=== PATIENT | male | born 2000 | race Caucasian/White ===

== ENCOUNTER 2024-03-06 09:40 | Emergency (ER) | payer SELFPAY ==
[2024-03-06 09:43] VITALS: BP 136/71; PULSE 80; RESP 16; TEMP 36.4; O2SAT 96; BMI 29.4
--- NOTE | 2024-03-06 10:20 | ED.EYEPROB ---
HPI - Eye Problem General Chief complaint: Eye Problems Stated complaint: ? L Eye Infection Time Seen by Provider: 03/06/24 09:46 Source: patient Mode of arrival: ambulatory Limitations: no limitations History of Present Illness ED Provider: Iesha Toscano APRN HPI Narrative: 23 yo male with no known medical history here with complaints of left upper eyelid swelling, redness, crusting and drainage. Patient reports symptoms began 1 week ago but then seemed to improve until the last 3 days when they have returned. Patient reports waking with crusting and drainage. He has no visual complaints. Does feel some slight soreness to his left eye. No severe pain, headache, vomiting. Patient reports he is currently in the [employer] and is doing his training away from home. Has not been able to use warm compresses. He does not use contacts or glasses. Related Data Previous Rx's ?Medication ?Instructions ?Recorded doxycycline monohydrate 100 mg 100 mg PO BID #14 caps 03/06/24 capsule erythromycin 5 mg/gram (0.5 %) eye 0.5 inch ophthalmic (eye) TID #3.5 03/06/24 ointment grams Allergies Allergy/AdvReac Type Severity Reaction Status Date / Time No Known Allergies Allergy Verified 03/06/24 09:44 Review of Systems Review of Systems: Yes all other systems are reviewed and are negative Constitutional: Constitutional: Reports no additional constitutional complaints, Denies body ache(s), Denies chills, Denies fever(s), Denies headache(s) and Denies weakness Eyes: Eyes: Reports no additional eye complaints, Denies change in vision, Denies diplopia, Reports eye discharge, Denies irritation, Denies itchy eyes, Denies eye pain, Denies requires corrective lenses, Denies seeing flashes and Denies photophobia ENT: Reports system reviewed and no additional complaints, except as documented, Denies dizziness, Denies headache(s), Denies nasal congestion, Denies nasal discharge and Denies neck pain Cardiovascular: Cardiovascular: Reports no additional cardiovascular complaints, Denies chest pain, Denies leg edema and Denies dyspnea Respiratory: Respiratory: Reports no additional respiratory complaints, Denies cough and Denies dyspnea Gastrointestinal: Gastrointestinal: Reports no additional gastrointestinal complaints, Denies abdominal pain, Denies diarrhea, Denies nausea and Denies vomiting Genitourinary: Genitourinary: Denies urinary incontinence Musculoskeletal: Musculoskeletal: Reports no additional musculoskeletal complaints, Denies back pain, Denies arthralgias, Denies joint swelling, Denies neck pain, Denies numbness and Denies tingling Integumentary/Breasts: Skin/Breast: Reports system reviewed and no additional complaints, except as docu and Denies rash Neurologic: Reports system reviewed and no additional complaints, except as documented, Denies Abnormal speech present, Denies dizziness, Denies headache(s), Denies numbness, Denies tingling and Denies weakness Allergic/Immunologic: Allergic/Immunologic: Denies itchy eyes PMFSH Past Medical History Attestation statement: The following information was validated with the patient. Source: old records reviewed and nursing notes reviewed Social History Social History Advance Directives: No Advance Directives Information Provided: No Physical Exam Vital Signs: Vital Signs: Last Vital Signs Temp 97.5 F 03/06/24 09:43 Pulse 80 03/06/24 09:43 Resp 16 03/06/24 09:43 BP 136/71 03/06/24 09:43 Pulse Ox 96 03/06/24 09:43 O2 Del Method Room Air 03/06/24 09:43 BMI result Body Mass Index 29.4 Const: General: cooperative, healthy appearing, comfortable and no acute distress Orientation/consciousness: patient oriented x3 Limitations: no limitations HEENT: Head: Yes normal to inspection Ears: hearing grossly normal bilaterally General nose exam: Normal external nose present Face and sinus: Yes normal facial exam Mouth: Normal oral and palatal mucosa present Throat: Yes posterior oropharynx normal Eyes: Other: Left upper eyelid swelling/redness with crusting noted over the lash line. NO pointing noted. No drainage noted General: appearance normal, both eyes and all related structures Visual Carmona: normal visual carmona by confrontation Alignment and Position: alignment normal Periorbital: periorbital findings normal Conjunctivae: conjunctivae normal Sclerae: sclerae normal Corneas: corneas normal Pupils: Equal, round and reactive pupils present EOM: EOMs intact bilaterally Direct Ophthalmoscopy: No photophobia Neck: Neck: Yes normal visual inspection Chest: Chest palpation & inspection: normal inspection of the chest Resp: Effort & Inspection: normal respiratory effort Auscultation: clear to auscultation bilaterally Cardio: Rate: regular rate Rhythm: regular rhythm Peripheral pulses: Peripheral pulses 2+ throughout GI: Inspection: Yes normal to inspection Palpation (GI): Soft to palpation and nontender Auscultation: normal bowel sounds Back/Spine/Pelvis: Thoracic/Lumbar Spine: thoracic and lumbar spine normal to inspection Skin: General skin exam: no rashes or lesions noted Neuro: General: patient oriented x3, no focal motor deficits and normal sensation to monofilament Cranial nerves: Yes Equal, round and reactive pupils present Cognition (Neuro): normal cognition Speech: No Abnormal speech present Gait exam (Neuro): Normal gait present Motor exam (neuro): 5/5 motor strength present throughout Extrem: General: Yes normal to inspection Medications Administered Discontinued Medications Generic Name Dose Route Start Last Admin Trade Name Freq PRN Reason Stop Dose Admin Erythromycin 1 cm 03/06/24 10:25 03/06/24 10:29 Erythromycin Base 0.5% Oph Oin 1 Gm Tube EYE-LEFT 03/06/24 10:26 1 cm ONCE ONE Administration Medical Decision Making Medical Decision Making MDM Narrative: 23 yo male with no known medical history here with complaints of left upper eyelid swelling, redness, crusting and drainage. Patient reports symptoms began 1 week ago but then seemed to improve until the last 3 days when they have returned. Patient reports waking with crusting and drainage. He has no visual complaints. Does feel some slight soreness to his left eye. No severe pain, headache, vomiting. Patient reports he is currently in the [employer] and is doing his training away from home. Has not been able to use warm compresses. He does not use contacts or glasses. Left upper eyelid swelling/redness with crusting noted over the lash line. NO pointing noted. No drainage noted. C/w blepharitis No visual complaints Will initiate both topical and oral antibiotic Differential Diagnosis Differential Diagnoses: The differential diagnosis associated with the presentation includes Blepharitis Low suspicion for chalazion, hordeolum, orbital cellulitis, conjunctival foreign body, conjunctival abrasion Admission/Observation Consideration of admission/observation: Escalation of care including admission/observation considered Tests considered The following testing was considered but not selected: Low suspicion for orbital cellulitis requiring imaging Prescription Management I considered prescription management with: Antibiotic Discharge Plan Discharge Clinical Impression: Blepharitis Patient Disposition: Home, Self-Care Instructions: Blepharitis (ED) Additional Instructions: Warm compresses 3-4 x daily Apply the ointment to the left eye three times daily Take the antibiotic as prescribed and with food Return for increased swelling, redness, visual concerns Wear sunscreen while taking the doxycycline Prescriptions: New erythromycin 5 mg/gram (0.5 %) ointment 0.5 inch ophthalmic (eye) TID Qty: 3.5 0RF doxycycline monohydrate 100 mg capsule 100 mg PO BID Qty: 14 0RF Referrals: Physician,None [Primary Care Provider] - 1 week Print Language: Albanian
[2024-03-06] MEDS: Erythromycin Base 0.5% Oph Oin 1 GM TUBE 1 CM EYE-LEFT (10:29)
[2024-03-06 10:55] VITALS: BP 136/71; PULSE 80; RESP 16; TEMP 36.4; O2SAT 96
== END 2024-03-06 10:59 | disposition home or self-care (01) ==
PROVIDERS: Emergency Provider Emergency Medicine
DX: H01.004 Unspecified blepharitis left upper eyelid (principal); H57.12 Ocular pain, left eye
CPT/HCPCS: 99282; 99283